=== PATIENT | female | born 1965 | race Caucasian/White ===

== ENCOUNTER → 2018-12-28 | Outpatient (CLI) | payer OTHER ==
[~2018-12-28] MED LIST: MEDR10 PO
== END | disposition home or self-care (01) ==
LOC: LAB 17:43 → LAB SHORT 17:43
DX: B35.1 Tinea unguium (principal)
CPT/HCPCS: 87102; 87106

== ENCOUNTER → 2024-07-19 | Outpatient (CLI) | payer OTHER ==
[2024-07-28 15:39] LABS: HPV HIGH RISK BY TMA Not Detected; HPV SOURCE Cervical
== END ==
LOC: LAB 17:11 → LAB SHORT 17:11
PROVIDERS: Family Medicine
DX: Z12.4 Encounter for screening for malignant neoplasm of cervix (principal)
CPT/HCPCS: 87624; G0123